=== PATIENT | female | born 1970 | race American Indian/Alaskan Native ===

== ENCOUNTER 2019-07-06 19:00 | Emergency (ER) | payer MEDICAID ==
--- NOTE | 2019-07-06 21:46 | Event Note ---
ED Screening Note Date of service: 07/06/19 Time: 21:40 ED Screening Note: This is a 48 y.o. F. that presents to the ER with fever, chills, and cough for 3 days. Patient daughter states she complained of pelvic pain, urinary frequency, urgency, and dysuria since last night. PMH of asthma and HTN This initial assessment/diagnostic orders/clinical plan/treatment(s) is/are subject to change based on patients health status, clinical progression and re- assessment by fellow clinical providers in the ED. Further treatment and workup at subsequent clinical providers discretion. Patient/guardian urged not to elope from the ED as their condition may be serious if not clinically assessed and m anaged. Initial orders include: Labs CT of abdomen
[2019-07-06 22:01] LABS: Hematocrit 41.4 % (30.3-42.9); Hemoglobin 13.6 gm/dl (10.1-14.3); Mean Corpuscular HGB Conc 33 % (30-34); Mean Corpuscular Volume 84 fl (79-97); Platelet Count 250 K/mm3 (140-440); Red Blood Count 4.93 M/mm3 (3.65-5.03); Red Cell Distribution Width 12.9 % (13.2-15.2)
[2019-07-06 22:22] LABS: Calcium 9.4 mg/dL (8.4-10.2)
[2019-07-06 23:55] LABS: Bacteria,Urine 1+ /HPF (Negative); Bilirubin,Urine NEG (Negative); Blood,Urine NEG (Negative); Color,Urine Yellow (Yellow); Mucus,Urine 3+ /HPF; Protein,Urine <15 mg/dL mg/dL (Negative); Urobilinogen,Urine < 2.0 mg/dL (<2.0)
[2019-07-07] MEDS ORDERED: IPRATROPIUM/ALBUTEROL SULFATE 3 ML AMPUL.NEB IH ONE (00:01)
[2019-07-07] MEDS ORDERED: predniSONE 50 MG TAB PO STA (00:02)
--- NOTE | 2019-07-07 00:06 | Emergency Department Report ---
ED General Adult HPI - General Chief complaint: Chest Pain Stated complaint: FEVER/NAUSEA Time Seen by Provider: 07/06/19 21:40 Source: patient Mode of arrival: Ambulatory Limitations: No Limitations - History of Present Illness Initial comments: 48-year-old female with a known past medical history of asthma, hypertension and oophorectomy left side presents emergency department complaining of a few medical issues today. 1 she states that there is some little discomfort and to her chest associated with coughing and occasional shortness of breath. She also been having some issues with abdominal pain resulting in dysuria. She reports no trauma. Reports no no hematuria no hematemesis nor hematochezia. Reports no fever, chills, sweats. There is been no rashes. No palliative factors have been evaluated. Consistency: constant Improves with: none Worsens with: none Associated Symptoms: cough, other. denies: headaches, loss of appetite, malaise, rash, seizure, shortness of breath - Related Data Previous Rx's Medication Instructions Recorded Last Taken Type Albuterol INH(or & Nicu Only) 2 puff IH QID PRN #1 inhalation 07/07/19 Unknown Rx [ProAir HFA Inhaler] Benzonatate [Tessalon Perles] 100 mg PO Q8HR #20 capsule 07/07/19 Unknown Rx predniSONE [Deltasone] 50 mg PO QDAY #5 tab 07/07/19 Unknown Rx Allergies Allergy/AdvReac Type Severity Reaction Status Date / Time No Known Allergies Allergy Unverified 07/06/19 21:48 ED Review of Systems ROS: Stated complaint: FEVER/NAUSEA Other details as noted in HPI Comment: All other systems reviewed and negative ED Past Medical Hx - Past Medical History Previous Medical History?: Yes Hx Hypertension: Yes Hx Asthma: Yes - Surgical History Past Surgical History?: Yes Additional Surgical History: Left Ovary Removal - Social History Smoking Status: Never Smoker Substance Use Type: None - Medications Home Medications: Home Medications Medication Instructions Recorded Confirmed Last Taken Type Albuterol INH(or & Nicu Only) 2 puff IH QID PRN #1 inhalation 07/07/19 Unknown Rx [ProAir HFA Inhaler] Benzonatate [Tessalon Perles] 100 mg PO Q8HR #20 capsule 07/07/19 Unknown Rx predniSONE [Deltasone] 50 mg PO QDAY #5 tab 07/07/19 Unknown Rx ED Physical Exam - General Limitations: No Limitations General appearance: alert, in no apparent distress - Head Head exam: Present: atraumatic, normocephalic - Eye Eye exam: Present: normal appearance, PERRL, EOMI Pupils: Present: normal accommodation - ENT ENT exam: Present: normal exam, normal orophraynx, mucous membranes moist - Neck Neck exam: Present: normal inspection, full ROM - Respiratory Respiratory exam: Present: normal lung sounds bilaterally, wheezes, rhonchi. Absent: respiratory distress, chest wall tenderness, accessory muscle use - Cardiovascular Cardiovascular Exam: Present: normal rhythm, tachycardia. Absent: systolic murmur, diastolic murmur, rubs, gallop - GI/Abdominal GI/Abdominal exam: Present: soft, normal bowel sounds - Extremities Exam Extremities exam: Present: normal inspection, normal capillary refill - Back Exam Back exam: Present: normal inspection - Neurological Exam Neurological exam: Present: alert, oriented X3 - Psychiatric Psychiatric exam: Present: normal affect, normal mood - Skin Skin exam: Present: warm, dry, intact, normal color. Absent: rash ED Course Vital Signs 07/06/19 07/07/19 19:20 02:20 Temperature 99.8 F H 99.3 F Pulse Rate 125 H 109 H Respiratory 18 19 Rate Blood Pressure 142/87 Blood Pressure 138/76 [Left] O2 Sat by Pulse 93 96 Oximetry ED Medical Decision Making - Lab Data Result diagrams: 07/06/19 21:50 07/06/19 21:50 - Medical Decision Making This patient presents with acute cough, most consistent with asthma/bronchitis. Presentation not consistent with acute bacterial pneumonia, influenza, asthma, transient airway hyperresponsiveness. Presentation not consistent with chronic causes of cough (including GERD, asthma, postnasal discharge, medication side effect, CHF, lung cancer or mass). Plan: CXR, supportive care, reassess Critical care attestation.: If time is entered above; I have spent that time in minutes in the direct care of this critically ill patient, excluding procedure time. ED Disposition Clinical Impression: Cough, Asthma, Abdominal pain Disposition: - TO HOME OR SELFCARE Is pt being admited?: No Does the pt Need Aspirin: No Condition: Stable Instructions: Asthma (ED), Reactive Airways Disease (ED), Cold Symptoms (ED), Acute Cough (ED), Abdominal Pain (ED) Prescriptions: predniSONE [Deltasone] 50 mg PO QDAY #5 tab Albuterol INH(or & Nicu Only) [ProAir HFA Inhaler] 2 puff IH QID PRN #1 inhalation PRN Reason: Shortness Of Breath Benzonatate [Tessalon Perles] 100 mg PO Q8HR #20 capsule Referrals: JAQUELINE CLARKE MD [Staff Physician] - 2-3 Days
[2019-07-07 00:25] LABS: Band Neutrophils # (Manual) 0.3 K/mm3; Total Cells Counted 100
[2019-07-07 00:27] LABS: Platelet Estimate Consistent w Auto; Stomatocytes Rare
--- NOTE | 2019-07-07 00:47 | Cat Scan Report ---
CT abdomen pelvis wo con INDICATION: pelvic pain, dysuria, r/o stones. TECHNIQUE: All CT scans at this location are performed using the following dose modulation technique: Automated exposure control. Helical slices were obtained through the abdomen and pelvis. No contrast is adminis tered. COMPARISON: None available. FINDINGS: Abdomen: Lung bases are clear. Liver, spleen, pancreas, adrenal glands, and small bowel show no acute abnormality. There is a small nonobstructing calyceal stone in the upper pole the left kidney. 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 The aorta is normal in diameter. There is no adenopat hy. There are no ureteral calculi. There is no hydronephrosis. There is no obstruction, inflammation, or free air. There are no abnormal fluid collections. Pelvis: There is no obstruction, inflammation, or free air. There are no abnormal collections. On review of bone windows, no acute osseous abnormalities are seen. IMPRESSION: 1. There is no obstruction, inflammation, or free air. There are no abnormal fluid collections. There is a small nonobstructing calyceal stone in the left kidney. There is no hydronephrosis. There are no ureteral calculi. Signer Name: Robert Dias MD Signed: 07/07/2019 12:42 AM Workstation Name: [id number]
[2019-07-07] MEDS ORDERED: ALBUTEROL 2.5 MG/3 ML NEBU IH ONE (00:49)
--- NOTE | 2019-07-07 02:18 | XRay Report ---
CHEST 2 VIEWS INDICATION / CLINICAL INFORMATION: cough. COMPARISON: None available. FINDINGS: SUPPORT DEVICES: None. HEART / MEDIASTINUM: No significant abnormality. LUNGS / PLEURA: No significant pulmonary or pleural abnormality. .No pneumothorax. ADDITIONAL FINDINGS: No significant additional findings. IMPRESSION: 1. No acute findings. Signer Name: Robert Dias MD Signed: 07/07/2019 2:14 AM Workstation Name: [id number]
[2019-07-07 02:22] VITALS: BP 138/76
== END 2019-07-07 03:39 | disposition home or self-care (01) ==
LOC: ED 19:00
DX: J45.909 Unspecified asthma, uncomplicated (principal); R10.9 Unspecified abdominal pain; I10 Essential (primary) hypertension
CPT/HCPCS: 36415; 71046; 74176; 80053; 81001; 84703; 85007; 85025; 94640; 99284; J7512